=== PATIENT | male | born 1975 | race Caucasian/White ===

== ENCOUNTER 2017-01-13 12:54 | Emergency (ER) | payer OTHER ==
[~2017-01-13] VITALS: Ht 172.7 cm; Wt 100.8 kg
[2017-01-13 13:03] VITALS: BP 135/77
[2017-01-13] MEDS ORDERED: LIDOCAINE 1%, 20ML ONE (13:18)
[2017-01-13] MEDS ORDERED: DIPH,PERTUSS(ACELL),TET VAC/PF 0.5 ML IM-VACC ONE (13:30)
[2017-01-13] MEDS ORDERED: LIDOCAINE 1%, 20ML SQ ONE (13:30)
[2017-01-13] MEDS ORDERED: BACITRACIN ZINC OINT 500U/GM, 0.9 GM ONE (13:59)
== END 2017-01-13 14:21 | disposition home or self-care (01) ==
LOC: ED 14:15
DX: S01.01XA Laceration without foreign body of scalp, initial encounter (principal); W22.8XXA Striking against or struck by other objects, initial encounter; Y93.89 Activity, other specified; Y99.8 Other external cause status; Y92.009 Unspecified place in unspecified non-institutional (private) residence as the place of occurrence of the external cause
CPT/HCPCS: 12001

== ENCOUNTER 2017-01-20 09:52 | Emergency (ER) | payer OTHER ==
[~2017-01-20] VITALS: Ht 172.7 cm; Wt 103.7 kg
[2017-01-20 09:53] VITALS: BP 122/70
== END 2017-01-20 10:52 | disposition home or self-care (01) ==
LOC: ED 10:45
DX: S01.01XD Laceration without foreign body of scalp, subsequent encounter (principal); W45.8XXD Other foreign body or object entering through skin, subsequent encounter
CPT/HCPCS: 99281